=== PATIENT | female | born 1945 | race Caucasian/White ===

== ENCOUNTER → 2017-09-26 | Outpatient (REF) | payer MEDICARE, BC ==
[2017-09-26 18:00] LABS: BASO % 0.4 % (0.0-1.0); EOS # 0.1 10^3/uL (0.0-0.50); EOS % 0.7 % (0.0-3.0); HEMATOCRIT 44.3 % (36.0-47.0); HEMOGLOBIN 14.5 g/dl (12.0-15.5); IMMATURE GRANULOCYTE % 0.3 % (0-3.0); LYMPH # 1.5 10^3/uL (1.5-4.5); LYMPH % 19.9 % (24.0-44.0); MEAN CORPUSCULAR HEMOGLOBIN 30.1 pg (27.0-33.0); MEAN CORPUSCULAR HGB CONC 32.7 g/dl (32.0-36.5); MEAN CORPUSCULAR VOLUME 92.1 fl (80.0-96.0); MONO # 0.6 10^3/uL (0.0-0.8); NEUTROPHILS # 5.4 10^3/uL (1.8-7.7); NEUTROPHILS % 70.7 % (36.0-66.0); PLATELET COUNT, AUTOMATED 300 10^3/uL (150-450); RED BLOOD COUNT 4.81 10^6/uL (4.00-5.40); RED CELL DISTRIBUTION WIDTH 12.9 % (11.5-14.5); WHITE BLOOD COUNT 7.6 10^3/uL (4.0-10.0)
[2017-09-26 19:04] LABS: ALT/SGPT 21 U/L (12-78); ANION GAP 8 MEQ/L (8-16); AST/SGOT 16 U/L (7-37); BLOOD UREA NITROGEN 17 MG/DL (7-18); CARBON DIOXIDE LEVEL 27 MEQ/L (21-32); CHLORIDE LEVEL 107 MEQ/L (98-107); CREATININE FOR GFR 0.76 MG/DL (0.55-1.30); GLOMERULAR FILTRATION RATE > 60.0 (>45); GLUCOSE, FASTING 92 MG/DL (70-100); SODIUM LEVEL 142 MEQ/L (136-145)
[2017-09-26 19:05] LABS: ALBUMIN/GLOBULIN RATIO 1.03 (1.00-1.93); ALKALINE PHOSPHATASE 66 U/L (45-117); BILIRUBIN,TOTAL 0.3 MG/DL (0.2-1.0); THYROID STIMULATING HORMONE 0.744 uIU/ML (0.358-3.740); TOTAL PROTEIN 7.9 GM/DL (6.4-8.2)
[2017-09-26 19:16] LABS: PROLACTIN 5.6 NG/ML
[2017-09-26 19:17] LABS: FOLATE > 24.0 NG/ML; VITAMIN B12 LEVEL 666 PG/ML
[2017-09-29 08:06] LABS: COPPER PLASMA 77 ug/dL (72-166)
[2017-09-29 08:06] LABS: CERULOPLASMIN 18.2 mg/dL (19.0-39.0)
== END ==
LOC: M LABNEURO 14:26
DX: C75.1 Malignant neoplasm of pituitary gland (principal); E53.8 Deficiency of other specified B group vitamins; E07.9 Disorder of thyroid, unspecified
CPT/HCPCS: 82525

== ENCOUNTER 2017-12-20 07:31 | Outpatient (CLI) | payer MEDICARE, BC ==
[2017-12-20 08:29] LABS: GLUCOSE,RANDOM 96 MG/DL (LESS THAN 200)
[2017-12-20 09:25] LABS: GLUCOSE,RANDOM 144 MG/DL (LESS THAN 200)
[2017-12-20 09:52] LABS: GLUCOSE,RANDOM 120 MG/DL (LESS THAN 200)
[2017-12-20 10:34] LABS: GLUCOSE,RANDOM 103 MG/DL (LESS THAN 200)
[2017-12-20 10:50] LABS: GLUCOSE,RANDOM 96 MG/DL (LESS THAN 200)
[2017-12-22 09:02] LABS: HUMAN GROWTH HORMONE 0.2 ng/mL (0.0-10.0)
[2017-12-22 09:02] LABS: HUMAN GROWTH HORMONE 0.1 ng/mL (0.0-10.0)
[2017-12-22 09:02] LABS: HUMAN GROWTH HORMONE 0.1 ng/mL (0.0-10.0)
[2017-12-22 09:02] LABS: HUMAN GROWTH HORMONE 0.1 ng/mL (0.0-10.0)
[2017-12-22 09:02] LABS: HUMAN GROWTH HORMONE 0.2 ng/mL (0.0-10.0)
== END 2017-12-20 10:20 | disposition home or self-care (01) ==
LOC: M INFU 07:31
DX: E27.9 Disorder of adrenal gland, unspecified (principal); Z79.891 Long term (current) use of opiate analgesic; Z79.899 Other long term (current) drug therapy
CPT/HCPCS: 82947

== ENCOUNTER → 2018-01-01 | Outpatient (REF) | payer MEDICARE, BC ==
[2018-01-01 12:54] LABS: CORTISOL AM 31.4 UG/DL (4.3-22.4)
[2018-01-03 00:15] LABS: ADRENOCORTICOTROPHIC HORMONE 22.2 pg/mL (7.2-63.3)
== END ==
LOC: M LABDRAW1 10:13
DX: E27.9 Disorder of adrenal gland, unspecified (principal)
CPT/HCPCS: 82533

== ENCOUNTER → 2018-10-04 | Outpatient (REF) | payer MEDICARE, BC ==
[~2018-10-04] MED LIST: ACET-716 PO; CALTTAB11 PO; CARB25TA9 PO; CENTCHW3 PO; CLON0.5T8 PO; FISH1CAP20 PO; IBUP200C25 PO; RANI1TAB6 PO; VITA-176 PO
[2018-10-04 15:08] LABS: ALBUMIN 3.6 GM/DL (3.2-5.2); ALT/SGPT 10 U/L (12-78); BILIRUBIN,TOTAL 0.4 MG/DL (0.2-1.0); BLOOD UREA NITROGEN 23 MG/DL (7-18); CALCIUM LEVEL 8.8 MG/DL (8.8-10.2); CARBON DIOXIDE LEVEL 29 MEQ/L (21-32); CHLORIDE LEVEL 106 MEQ/L (98-107); CREATININE FOR GFR 0.72 MG/DL (0.55-1.30); GLOMERULAR FILTRATION RATE > 60.0 (>39); GLUCOSE, FASTING 98 MG/DL (70-100); POTASSIUM SERUM 4.1 MEQ/L (3.5-5.1); SODIUM LEVEL 139 MEQ/L (136-145); TOTAL PROTEIN 7.6 GM/DL (6.4-8.2)
== END ==
LOC: M LABNEURO 13:23
PROVIDERS: ATTEND Psychiatry & Neurology Neurology
DX: G20 Parkinson's disease (principal)

== ENCOUNTER → 2023-07-24 | Outpatient (REF) | payer MEDICARE, BC ==
[~2023-07-24] MED LIST changes: +CLON0.5T2 PO; -CLON0.5T8 PO; +RANI-397 PO; -RANI1TAB6 PO
== END ==
LOC: M LAB REF 16:01
PROVIDERS: ATTEND Surgery
DX: L90.5 Scar conditions and fibrosis of skin (principal)

== ENCOUNTER → 2024-03-19 | Outpatient (CLI) | payer MEDICARE ==
[~2024-03-19] MED LIST changes: +METHACHOLINE KIT (6 VIAL.NEB PREMIX) INH ONE
== END ==
LOC: M CARPUL 08:33
PROVIDERS: ATTEND Physician Assistant
DX: R06.00 Dyspnea, unspecified (principal)
CPT/HCPCS: 94070; 95070; J7674